=== PATIENT | female | born 1975 | race Asian ===

== ENCOUNTER 2024-09-04 10:03 | Day surgery (SDC) | payer OTHER ==
[~2024-09-04] VITALS: Ht 154.9 cm; Wt 84.5 kg
[~2024-09-04 10:03] MED LIST: CENTRUM SILVER1 EAC2 PO; Lactated Ringer's 1,000 ML IV ONE; Lactated Ringer's 1,000 ML ONE; MULVITMINE PO
[2024-09-04] MEDS ORDERED: Lactated Ringer's 1,000 ML IV ONE (10:41)
[2024-09-04] MEDS ORDERED: propofoL 20 ML IV ONE ×2 (11:37→11:38)
[2024-09-04] MEDS ORDERED: Midazolam HCl 1MG / ML 2ML Vial ONE (11:37)
[2024-09-04] MEDS ORDERED: FentaNYL Citrate 50 MCG/ML 2 ML Injection ONE (11:37)
[2024-09-04] MEDS ORDERED: Rocuronium Bromide 10 MG/ML 5ML Injection IV ONE (11:58)
[2024-09-04] MEDS ORDERED: Sugammadex Sodium 200 MG/2ML SDV (100 MG/ML) ONE (12:04)
[2024-09-04 12:52] VITALS: BP 120/80
--- NOTE | 2024-09-04 12:58 | NUR ---
09/04/24 1258 Elo Sandoval RN [facility]-- PHARMACIST TOLD US THAT THE RX WAS READY TO BE PICKED UP. THEY RECEIVED A SHIPMENT OF MEDICATION PRESCRIBED BY DR. THAYER. PT WAS PRESCRIBED OXYCODONE 5MG/5ML AND ZOFRAN. PT'S MOM, TOUCH, WILL UNIT COORDINATOR PRESCRIPTION. 1250: PT UP IN RECLINER, TOLERATING FLUIDS AND EATING A POPSICLE. PT DENIES ANY PAIN, AND NO NAUSEA. VSS, PT ON RA, OXYGEN SAT AT 100%. WCTM.
== END 2024-09-04 13:25 | disposition home or self-care (01) ==
LOC: ORSCSDS 10:03
PROVIDERS: Otolaryngology
PROC: 0CTPXZZ Resection of Tonsils, External Approach (ICD-10-PCS; principal; 2024-09-04 11:45)
DX: J35.01 Chronic tonsillitis (principal); J35.8 Other chronic diseases of tonsils and adenoids; G47.33 Obstructive sleep apnea (adult) (pediatric); E66.01 Morbid (severe) obesity due to excess calories; Z68.37 Body mass index [BMI] 37.0-37.9, adult
CPT/HCPCS: 88304; J2250; J2704; J3010; J7120

== ENCOUNTER 2025-03-06 13:17 | Day surgery (SDC) | payer OTHER ==
[~2025-03-06] VITALS: Ht 154.9 cm; Wt 96.1 kg
[~2025-03-06 13:17] MED LIST changes: -Lactated Ringer's 1,000 ML ONE
[2025-03-06] MEDS ORDERED: ACET325 (13:29)
[2025-03-06] MEDS ORDERED: IBUP800 (13:30)
[2025-03-06] MEDS ORDERED: SUMA25 (13:30)
[2025-03-06] MEDS ORDERED: Lactated Ringer's 1,000 ML IV ONE (14:08)
[2025-03-06] MEDS ORDERED: propofoL 50 ML IV ONE (14:27)
[2025-03-06 15:28] VITALS: BP 132/78
--- NOTE | 2025-03-06 15:32 | NUR ---
03/06/25 1532 REESE BOWEN DC INSTRUCTIONS LEFT IN ROOM, TAKEN TO J[employer] PROGRAMMER AND MARCUS WILL MAIL TO PT.
== END 2025-03-06 15:27 | disposition home or self-care (01) ==
LOC: ORSCSDS 13:17
PROVIDERS: Surgery
PROC: 0DJD8ZZ Inspection of Lower Intestinal Tract, Via Natural or Artificial Opening Endoscopic (ICD-10-PCS; principal; 2025-03-06 13:30)
DX: Z12.11 Encounter for screening for malignant neoplasm of colon (principal); G47.33 Obstructive sleep apnea (adult) (pediatric); E66.01 Morbid (severe) obesity due to excess calories; Z68.41 Body mass index [BMI] 40.0-44.9, adult; F32.A Depression, unspecified; Z79.899 Other long term (current) drug therapy
CPT/HCPCS: J2704; J7120